=== PATIENT | female | born 1970 | race Caucasian/White ===

== ENCOUNTER 2023-01-13 14:53 | Emergency (ER) | payer OTHER ==
[~2023-01-13] VITALS: Ht 175.3 cm; Wt 122.5 kg
[~2023-01-13 14:53] MED LIST: ABAC300; Adipex-P37.5 M1 PO; Adipex-P37.5 MG; CALCAVITD PO; CHOL10002 PO; CLARITIN-D 121 EACH PO; CLIN300 PO; FLUC150A PO; IBUP200 PO; LO LOESTRIN FE1 EACH PO; METHYLPHENIDATE18 MG PO; METO50ER PO; Multi-Day Vita1 EACH; NAPR220; OMEP40CA12 PO; OXYACE5T PO; SULTRIDS PO; Super B Comple150 MG PO; VALA500 PO
[2023-01-13 15:07] VITALS: BP 122/81
[2023-01-13] MEDS ORDERED: Zithromax250 MG PO (17:02)
== END 2023-01-13 17:16 | disposition home or self-care (01) ==
LOC: ER 14:53
DX: J18.9 Pneumonia, unspecified organism (principal); F17.200 Nicotine dependence, unspecified, uncomplicated; Z88.0 Allergy status to penicillin; Z79.899 Other long term (current) drug therapy
CPT/HCPCS: 71046; 99283-25

== ENCOUNTER 2023-01-15 09:43 | Inpatient (IN) | payer OTHER ==
[~2023-01-15] VITALS: Ht 162.6 cm; Wt 127.8 kg
[2023-01-15] VITALS (8 sets, daily range): BP systolic 99–149; BP diastolic 61–94
[~2023-01-15 09:43] MED LIST changes: +Zithromax250 MG PO
[2023-01-15 10:21] LABS: Base Excess Venous -6.8 mmol/L; Bicarbonate Venous 19.3 mmol/L (24.0-30.0); pH Blood Venous 7.36 (7.34-7.37)
[2023-01-15 10:46] LABS: Albumin, Blood 1.7 g/dL (3.4-5.0); Albumin/Globulin Ratio 0.4 (0.8-1.8); Bilirubin, Total 3.1 mg/dL (0.1-1.0); Calcium, Blood 8.5 mg/dL (8.5-10.1); Creatinine, Blood 1.46 mg/dL (0.40-1.00); Globulin, Blood 4.8 g/dL (2.2-4.0); Potassium, Blood 3.2 mmol/L (3.5-5.5); Total Protein, Blood 6.5 g/dL (6.4-8.2)
[2023-01-15 10:48] LABS: Hematocrit 40.8 % (33.0-51.0); Hemoglobin 14.1 g/dL (11.5-16.0); Mean Corpuscular HGB 29.3 pg (26.0-34.0); Mean Corpuscular HGB Conc 34.6 g/dL (31.5-36.5); Mean Corpuscular Volume 85 fL (80-100); Mean Platelet Volume 12.8 fL (9.1-12.4); Platelet Count 72 K/mm3 (150-400); RDW Coefficient Variation 13.9 % (11.7-14.2); RDW Standard Deviation 43.3 fL (35.1-46.3); Red Blood Cell Count 4.81 M/mm3 (3.80-5.20); White Blood Cell Count 26.65 K/mm3 (4.00-11.30)
[2023-01-15 11:42] LABS: Influenza A, PCR NEGATIVE (NEGATIVE); Influenza B, PCR NEGATIVE (NEGATIVE); Resp Syncytial Virus, PCR NEGATIVE (NEGATIVE); SARS-Cov-2 (COVID-19) PCR, MMC NEGATIVE (NEGATIVE)
[2023-01-15 12:22] LABS: BAND PERCENT MAN 14 % (0-8); BASOPHILS PERCENT MAN 0 % (0-2); EOSINOPHILS PERCENT MAN 0 % (0-6); LYMPHOCYTES % ATYPICAL MANUAL 1 % (0-0); LYMPHOCYTES ABSOLUTE MAN 1.06 K/mm3 (0.84-5.20); LYMPHOCYTES PERCENT MAN 3 % (21-46); METAMYELOCYTE ABSOLUTE MAN 0.26 K/mm3 (0.00-0.00); METAMYELOCYTE PERCENT MAN 1 % (0-0); MONOCYTES ABSOLUTE MAN 0.53 K/mm3 (0.16-1.47); MONOCYTES PERCENT MAN 2 % (4-13); NEUTROPHILS ABSOLUTE MAN 24.78 K/mm3 (1.96-9.15); SEG NEUTROPHILS PERCENT MAN 79 % (41-73); TOTAL CELLS COUNTED 100
[2023-01-15] MEDS ORDERED: MODA200 PO (13:57)
[2023-01-15] MEDS ORDERED: PANT40 PO (13:59)
[2023-01-15] MEDS ORDERED: CENTRUM SILVER1 EAC2 PO (14:01)
[2023-01-15] MEDS ORDERED: DESV50 PO (14:03)
[2023-01-15] MEDS ORDERED: ALBU90OI INH (14:11)
[2023-01-15] MEDS ORDERED: ALBU90OI6 INH (14:12)
[2023-01-15 15:01] LABS: Adenovirus Not Detected (NOT DETECT); Bordetella pertussis Not Detected (NOT DETECT); Chlamydophila pneumoniae Not Detected (NOT DETECT); Coronavirus 229E Not Detected (NOT DETECT); Coronavirus HKU1 Not Detected (NOT DETECT); Coronavirus NL63 Not Detected (NOT DETECT); Coronavirus OC43 Not Detected (NOT DETECT); Human Metapneumovirus Not Detected (NOT DETECT); Human Rhinovirus/Enterovirus Not Detected (NOT DETECT); Influenza A/2009-H1 Not Detected (NOT DETECT); Influenza A/H1 Not Detected (NOT DETECT); Influenza A/H3 Not Detected (NOT DETECT); Influenza B Not Detected (NOT DETECT); Mycoplasma pneumoniae Not Detected (NOT DETECT); Parainfluenza Virus 1 Not Detected (NOT DETECT); Parainfluenza Virus 2 Not Detected (NOT DETECT); Parainfluenza Virus 3 Not Detected (NOT DETECT); Parainfluenza Virus 4 Not Detected (NOT DETECT); Respiratory Syncytial Virus Not Detected (NOT DETECT); SARS-Cov-2 (COVID-19), BioFire Not Detected (NOT DETECT)
--- NOTE | 2023-01-15 19:31 | NUR ---
SHIFT SUMMARY NEW ADMIT TO UNIT FROM ER FOR ACUTE HYPOXEMIA WITH PNEUMONIA. ARRIVED TO ROOM AT 1500 ON GURNEY. ON CPAP AT 10/70%. SLIDE TRANSFERRED TO BED. ALERT AND ORIENTED. SPO2 MID 90S, SBP 140S, HR 100S, TEMP NORMAL, RR 24-34. ADMISSION COMPLETED. DESATS IMMEDIATELY TO 70S-80S WHEN MASK REMOVED FOR SIPS OF WATER. REBOUNDS QUICKLY. TRIALED HIFLOW O2 AT 50L AND 100%, TOLERATED FOR A SHORT TIME WHILE PATIENT ATE DINNER. DESATS WITH EXERTION, BEDREST EXCEPT FOR BSC. CPAP REPLACED. PATIENT REPORTS SOME ANXIETY AND CLAUSTROPHOBIA WITH CPAP MASK. ATIVAN PRN ON EMAR. IV FLUIDS AND ABX RUNNING. SON VISITED AT BEDSIDE. REPORT GIVEN TO CASTINGS DRAFTER RN.
--- NOTE | 2023-01-15 21:08 | NUR ---
ASSUMPTION AND TRANSFER OF CARE ASSUMED CARE OF PT AT 1900. PT AXO, ON CPAP 10CM 70%. PT VISIBLY ANXIOUS WITH A RESPIRATORY RATE >45. ATIVAN IV ADMINISTERED, LITTLE EFFECT. CALLED RESIDENT, HIGHER DOSAGE OBTAINED. ADMINISTERED, PT STILL WITH RR >40 AND HAS QUICKLY INCREASED O2 DEMANDS TO 100% FIO2. SPO2 88-92 IF PATIENT ISN'T MOVING. SINUS TACH >115. ORDERS RECEIVED FOR ICU TRANSFER AND PRECEDEX GTT. PT TRANSFERRED @ 2114. IGNITION ASSESMENT COMPLETED AND EDUCATION COMPLETED.
[2023-01-16] VITALS (39 sets, daily range): BP systolic 70–140; BP diastolic 44–88
[2023-01-16 00:55] LABS: PO2 Arterial 65.3 mmHg (80-100)
[2023-01-16 00:56] LABS: pH Blood Arterial 7.25 (7.35-7.45)
--- NOTE | 2023-01-16 02:00 | NUR ---
PATIENT INTUBATED WITH RT NUNES AND DR ROBB. 2332- 5MG VERSED, 50MG PROPOFOL 2333- 30MG PROPOFOL 2334- INTUBATED WITH 8.0 ETT 24 @TEETH 2336- 2MG VERSED, 20MG PROPOFOL 2338- 25MG ROCURONIUM ETT TUBE CHANGED TO 22 @TEETH AFTER CXR
[2023-01-16 02:05] LABS: Source, Urine Foley catheter
[2023-01-16 02:08] LABS: Blood, Urine 3+ (Neg); Glucose Qualitative, Urine Neg (Neg); Ketones, Urine 1+ (Neg); Leukocyte Esterase, Urine 1+ (Neg); Nitrite, Urine Neg (Neg); Protein, Urine 3+ (Neg); Urobilinogen, Urine 1+ (Normal)
[2023-01-16 02:36] LABS: Appearance, Urine Hazy (Clear); Bilirubin, Urine 1+ (Neg); Color, Urine Amber (P-Yellow)
[2023-01-16 02:37] LABS: Amorphous Light (0-Heavy); Bacteria Mod /hpf; Red Blood Cells, Urine 0-2 /hpf (0-2); Squamous Epithelial Cells Mod /hpf (Few); White Blood Cells, Urine 25-50 /hpf (0-5)
[2023-01-16 02:52] LABS: Adenovirus Not Detected (NOT DETECT); Bordetella pertussis Not Detected (NOT DETECT); Chlamydophila pneumoniae Not Detected (NOT DETECT); Coronavirus 229E Not Detected (NOT DETECT); Coronavirus HKU1 Not Detected (NOT DETECT); Coronavirus NL63 Not Detected (NOT DETECT); Coronavirus OC43 Not Detected (NOT DETECT); Human Metapneumovirus Not Detected (NOT DETECT); Human Rhinovirus/Enterovirus Not Detected (NOT DETECT); Influenza A/2009-H1 Not Detected (NOT DETECT); Influenza A/H1 Not Detected (NOT DETECT); Influenza A/H3 Not Detected (NOT DETECT); Influenza B Not Detected (NOT DETECT); Mycoplasma pneumoniae Not Detected (NOT DETECT); Parainfluenza Virus 1 Not Detected (NOT DETECT); Parainfluenza Virus 2 Not Detected (NOT DETECT); Parainfluenza Virus 3 Not Detected (NOT DETECT); Parainfluenza Virus 4 Not Detected (NOT DETECT); Respiratory Syncytial Virus Not Detected (NOT DETECT); SARS-Cov-2 (COVID-19), BioFire Not Detected (NOT DETECT)
[2023-01-16 03:40] LABS: Hematocrit 36.7 % (33.0-51.0); Hemoglobin 11.8 g/dL (11.5-16.0); Mean Corpuscular HGB 28.9 pg (26.0-34.0); Mean Corpuscular HGB Conc 32.2 g/dL (31.5-36.5); RDW Coefficient Variation 14.6 % (11.7-14.2); Red Blood Cell Count 4.08 M/mm3 (3.80-5.20); White Blood Cell Count 23.97 K/mm3 (4.00-11.30)
[2023-01-16 03:44] LABS: Mean Corpuscular Volume 90 fL (80-100); Mean Platelet Volume 13.7 fL (9.1-12.4)
[2023-01-16 03:46] LABS: Platelet Count 40 K/mm3 (150-400)
[2023-01-16 03:58] LABS: Albumin, Blood 1.3 g/dL (3.4-5.0); Albumin/Globulin Ratio 0.3 (0.8-1.8); Bilirubin, Total 2.5 mg/dL (0.1-1.0); Bun/Creatinine Ratio 28.3 (12.0-20.0); Calcium, Blood 7.3 mg/dL (8.5-10.1); Creatinine, Blood 1.27 mg/dL (0.40-1.00); Globulin, Blood 3.9 g/dL (2.2-4.0); Magnesium, Blood 2.8 mg/dL (1.6-2.4); Potassium, Blood 4.5 mmol/L (3.5-5.5); Total Protein, Blood 5.2 g/dL (6.4-8.2)
[2023-01-16 04:11] LABS: BAND PERCENT MAN 21 % (0-8); BASOPHILS PERCENT MAN 0 % (0-2); EOSINOPHILS PERCENT MAN 0 % (0-6); LYMPHOCYTES ABSOLUTE MAN 0.71 K/mm3 (0.84-5.20); LYMPHOCYTES PERCENT MAN 3 % (21-46); METAMYELOCYTE ABSOLUTE MAN 0.23 K/mm3 (0.00-0.00); METAMYELOCYTE PERCENT MAN 1 % (0-0); MONOCYTES ABSOLUTE MAN 0.23 K/mm3 (0.16-1.47); MONOCYTES PERCENT MAN 1 % (4-13); MYELOCYTE ABSOLUTE MAN 0.47 K/mm3 (0.00-0.00); MYELOCYTE PERCENT MAN 2 % (0-0); NEUTROPHILS ABSOLUTE MAN 22.29 K/mm3 (1.96-9.15); SEG NEUTROPHILS PERCENT MAN 72 % (41-73); TOTAL CELLS COUNTED 100
--- NOTE | 2023-01-16 06:36 | NUR ---
PATIENT TRANSFERRED FROM PCU TO ICU OVERNIGHT FOR PRECEDEX WITH BIPAP. PATIENT RESPIRATORY STATUS CONTINUED TO DECLINE, INTUBATED AND PARALYZED. NIMBEX GTT INFUSING AND BIS MONITOR IN PLACE. TRAIN OF FOUR CURRENTLY 0/4, WEANING NIMBEX. 8.0 ETT, 22 @TEETH. AC/VC 26/300/18/100%. SINUS TACH. HYPOTENSIVE IMMEDIATELY INTUBATION BUT BP STABILIZED AFTER 1L BOLUS. OGT AND HOWARD IN PLACE. FAMILY AT BEDSIDE. UNABLE TO EDUCATE PATIENT ON IGNITION SOURCES.
--- NOTE | 2023-01-16 08:56 | NUR ---
ASSUMED CARE REPORT FROM TARIK SZYMANSKI AT 0700. PT INTUBATED, SEDATED, AND PARALYZED. VENT SETTINGS AC/VC 26/300/20/100% LUNGS COARSE c HIGH PITCHED WHEEZE. O2 SATS 90%. PLAN TO PRONE THIS SHIFT. NIMBEX INFUSING FOR VENT COMPLIANCE, TO4 4 BUT PT COMPLIANT c VENT. PROPOFOL FOR SEDATION. BIS MONITORING, 40'S. ST ON MONITOR, RATE 120-130'S. BP STABLE. OGT TO LIS, GREEN EMESIS OUT, ABD SOFT, OBESE, ROUND. BY X 4. HOWARD PATENT, DRAINING YELLOW URINE TO GRAVITY. FAMILY AT BEDSIDE. PLAN FOR PICC, PRONE AND POSSIBLE TRANSFER THIS SHIFT. FAMILY UPDATED ON CARE PLAN. WILL CONTINUE TO MONITOR.
--- NOTE | 2023-01-16 10:12 | NUR ---
PRONE POSITION PT PRONED AT 0930 s INCIDENCE. PRESSURE POINTS ADDRESSED, PILLOWS PLACED, GEL PAD UNDER HEAD, MEPILEX TO KNEES, HOWARD STAT LOCK REMOVED. O2 SATS IMPROVED, CURRENTLY 95%. BP DECREASED AFTER PRONING, LEVO GTT STARTED FOR MAP >65. TO4 CONTINUES TO BE 4/4 BUT PT COMPLIANT c VENT. CONTINUING TO WORK ON TRANSFER.
[2023-01-16 11:23] LABS: Base Excess Venous -11.1 mmol/L; Bicarbonate Venous 14.6 mmol/L (24.0-30.0)
--- NOTE | 2023-01-16 11:40 | NUR ---
TRANSFER TO [facility] PT REMAINS IN PRONE POSITION. TOLERATING WELL, O2 SATS 97%. LUNGS DIM THROUGHOUT. LEVO TITRATED FOR MAP>65. NIMBEX AND PROPOFOL CONTINUE. REPORT TO REACH. TRANSFERRED CARE. REPORT TO CHRISTINA SZYMANSKI AT [facility]. FAMILY NOTIFIED OF TRANSFER.
--- NOTE | 2023-01-16 12:03 | NUR ---
PT OUT TO HELICOPTER WITH REACH CREW. SATS 88-90% AND ETCO2 65 UPON LOADING INTO HELICOPTER. 2 AMPS BICARB PUSH TO BE ADMINISTERED BY REACH CREW DUE TO PH 6.98. LEVOPHED AT 15 MCG WITH MAP >65.
== END 2023-01-16 11:50 | disposition short-term general hospital (02) | DRG 871 ==
LOC: ER 09:43 → PCU 11:41 → ICUE 11:41 → PCU 13:22 → ICUE 21:22
PROVIDERS: Emergency Medicine; Internal Medicine Critical Care Medicine; ADMIT Internal Medicine
PROC: 5A1935Z Respiratory Ventilation, Less than 24 Consecutive Hours (ICD-10-PCS; principal; 2023-01-15)
PROC: 0BH17EZ Insertion of Endotracheal Airway into Trachea, Via Natural or Artificial Opening (ICD-10-PCS; 2023-01-15)
PROC: 5A09357 Assistance with Respiratory Ventilation, Less than 24 Consecutive Hours, Continuous Positive Airway Pressure (ICD-10-PCS; 2023-01-15)
PROC: 3E03329 Introduction of Other Anti-infective into Peripheral Vein, Percutaneous Approach (ICD-10-PCS; 2023-01-15)
PROC: 0DH67UZ Insertion of Feeding Device into Stomach, Via Natural or Artificial Opening (ICD-10-PCS; 2023-01-15)
PROC: 4A033R1 Measurement of Arterial Saturation, Peripheral, Percutaneous Approach (ICD-10-PCS; 2023-01-15)
PROC: 3E033XZ Introduction of Vasopressor into Peripheral Vein, Percutaneous Approach (ICD-10-PCS; 2023-01-15)
PROC: 5A0935A Assistance with Respiratory Ventilation, Less than 24 Consecutive Hours, High Flow/Velocity Cannula (ICD-10-PCS; 2023-01-15)
PROC: 02HV33Z Insertion of Infusion Device into Superior Vena Cava, Percutaneous Approach (ICD-10-PCS; 2023-01-15)
DX: A41.9 Sepsis, unspecified organism (principal); J18.9 Pneumonia, unspecified organism; J80 Acute respiratory distress syndrome; N17.9 Acute kidney failure, unspecified; E87.1 Hypo-osmolality and hyponatremia; E87.4 Mixed disorder of acid-base balance; E87.6 Hypokalemia; J45.909 Unspecified asthma, uncomplicated; R94.5 Abnormal results of liver function studies; R65.20 Severe sepsis without septic shock; G47.419 Narcolepsy without cataplexy; G83.9 Paralytic syndrome, unspecified; Z20.822 Contact with and (suspected) exposure to COVID-19; F17.210 Nicotine dependence, cigarettes, uncomplicated; D69.6 Thrombocytopenia, unspecified; R74.8 Abnormal levels of other serum enzymes; I10 Essential (primary) hypertension; G89.29 Other chronic pain; I95.9 Hypotension, unspecified; Z79.51 Long term (current) use of inhaled steroids; Z88.0 Allergy status to penicillin; Z79.899 Other long term (current) drug therapy; Z79.2 Long term (current) use of antibiotics; Z79.891 Long term (current) use of opiate analgesic; Z98.890 Other specified postprocedural states; Z98.51 Tubal ligation status; Z86.14 Personal history of Methicillin resistant Staphylococcus aureus infection
CPT/HCPCS: 0202U; 0241U; 31500; 36415; 36569; 36600; 71045; 80053; 81001; 82803; 82947; 83605; 83735; 84145; 85025; 87040; 87070; 87081; 87086; 87205; 93005; 93010; 94002; 94640; 94660; 94664; 94762; 96365; 96366; 96367; 96375; 99285-25; A9270; C1751; C9113; J0456; J0696; J1956; J2060; J2250; J2704; J7030; J7040; J7050; J7060

== ENCOUNTER 2023-02-27 10:04 | Emergency (ER) | payer OTHER ==
[~2023-02-27] VITALS: Ht 162.6 cm; Wt 117.9 kg
[~2023-02-27 10:04] MED LIST changes: +ALBU90OI INH; +ALBU90OI6 INH; +CENTRUM SILVER1 EAC2 PO; +DESV50 PO; +MODA200 PO; +PANT40 PO
[2023-02-27] MEDS ORDERED: OMEP20ER PO (10:51)
[2023-02-27] MEDS ORDERED: Cleocin HCl150 MG (10:52)
[2023-02-27] MEDS ORDERED: CLARITIN5 MG PO (10:52)
[2023-02-27 12:27] LABS: BASOPHILS ABSOLUTE AUTO 0.03 K/mm3 (0.00-0.23); BASOPHILS PERCENT AUTO 0 % (0-2); EOSINOPHILS ABSOLUTE AUTO 0.19 K/mm3 (0.00-0.68); EOSINOPHILS PERCENT AUTO 2 % (0-6); Hematocrit 34.1 % (33.0-51.0); Hemoglobin 10.8 g/dL (11.5-16.0); IMMATURE GRAN ABSOLUTE AUTO 0.05 K/mm3 (0.00-0.10); IMMATURE GRAN PERCENT AUTO 1 % (0-1); LYMPHOCYTES ABSOLUTE AUTO 1.91 K/mm3 (0.84-5.20); LYMPHOCYTES PERCENT AUTO 24 % (21-46); MONOCYTES ABSOLUTE AUTO 0.59 K/mm3 (0.16-1.47); MONOCYTES PERCENT AUTO 7 % (4-13); Mean Corpuscular HGB 29.2 pg (26.0-34.0); Mean Corpuscular HGB Conc 31.7 g/dL (31.5-36.5); Mean Corpuscular Volume 92 fL (80-100); Mean Platelet Volume 10.6 fL (9.1-12.4); NEUTROPHILS ABSOLUTE AUTO 5.15 K/mm3 (1.96-9.15); NEUTROPHILS PERCENT AUTO 65 % (41-73); Platelet Count 224 K/mm3 (150-400); RDW Coefficient Variation 14.3 % (11.7-14.2); RDW Standard Deviation 48.3 fL (35.1-46.3); White Blood Cell Count 7.92 K/mm3 (4.00-11.30)
[2023-02-27 12:38] LABS: Albumin, Blood 2.9 g/dL (3.4-5.0); Albumin/Globulin Ratio 0.7 (0.8-1.8); Bilirubin, Total 0.4 mg/dL (0.1-1.0); Bun/Creatinine Ratio 8.7 (12.0-20.0); Calcium, Blood 8.6 mg/dL (8.5-10.1); Creatinine, Blood 0.69 mg/dL (0.40-1.00); Globulin, Blood 3.9 g/dL (2.2-4.0); Total Protein, Blood 6.8 g/dL (6.4-8.2)
[2023-02-27 12:41] LABS: International Normalized Ratio 1.01; Prothrombin Time Results 10.6 Sec (9.7-11.5)
[2023-02-27] MEDS ORDERED: XARELTO15 MG PO (12:47)
[2023-02-27 12:58] VITALS: BP 169/97
== END 2023-02-27 12:57 | disposition home or self-care (01) ==
LOC: ER 10:04
PROVIDERS: Physician Assistant
DX: I82.431 Acute embolism and thrombosis of right popliteal vein (principal); I82.411 Acute embolism and thrombosis of right femoral vein; I82.441 Acute embolism and thrombosis of right tibial vein; I82.451 Acute embolism and thrombosis of right peroneal vein; Z88.0 Allergy status to penicillin; Z79.899 Other long term (current) drug therapy; F17.200 Nicotine dependence, unspecified, uncomplicated
CPT/HCPCS: 80053; 85025; 85610; 93971; 99284-25

== ENCOUNTER → 2023-04-17 | Outpatient (CLI) | payer OTHER ==
[~2023-04-17] MED LIST changes: +CLARITIN5 MG PO; +Cleocin HCl150 MG; +OMEP20ER PO; +XARELTO15 MG PO
[2023-04-19 15:08] LABS: Stool Occult Bld Immuno 1 Negative (NEGATIVE)
== END | disposition home or self-care (01) ==
LOC: LAB SHORT 08:43 → LAB 08:43
PROVIDERS: Physician Assistant
DX: Z12.11 Encounter for screening for malignant neoplasm of colon (principal)
CPT/HCPCS: G0328

== ENCOUNTER 2023-07-30 15:23 | Inpatient (IN) | payer OTHER ==
[~2023-07-30] VITALS: Ht 160 cm; Wt 126.4 kg
[~2023-07-30 15:23] MED LIST changes: -DESV50 PO; -METO50ER PO; -OMEP20ER PO
[2023-07-30 16:23] LABS: BASOPHILS ABSOLUTE AUTO 0.11 K/mm3 (0.00-0.23); BASOPHILS PERCENT AUTO 1 % (0-2); EOSINOPHILS ABSOLUTE AUTO 0.03 K/mm3 (0.00-0.68); EOSINOPHILS PERCENT AUTO 0 % (0-6); Hemoglobin 19.5 g/dL (11.5-16.0); IMMATURE GRAN ABSOLUTE AUTO 0.16 K/mm3 (0.00-0.10); IMMATURE GRAN PERCENT AUTO 1 % (0-1); LYMPHOCYTES ABSOLUTE AUTO 2.66 K/mm3 (0.84-5.20); LYMPHOCYTES PERCENT AUTO 12 % (21-46); MONOCYTES ABSOLUTE AUTO 1.21 K/mm3 (0.16-1.47); MONOCYTES PERCENT AUTO 6 % (4-13); Mean Corpuscular HGB 28.4 pg (26.0-34.0); Mean Corpuscular HGB Conc 32.8 g/dL (31.5-36.5); Mean Corpuscular Volume 87 fL (80-100); Mean Platelet Volume 11.4 fL (9.1-12.4); NEUTROPHILS ABSOLUTE AUTO 17.65 K/mm3 (1.96-9.15); NEUTROPHILS PERCENT AUTO 81 % (41-73); Platelet Count 321 K/mm3 (150-400); RDW Coefficient Variation 14.7 % (11.7-14.2); RDW Standard Deviation 43.8 fL (35.1-46.3); Red Blood Cell Count 6.86 M/mm3 (3.80-5.20); White Blood Cell Count 21.82 K/mm3 (4.00-11.30)
[2023-07-30 16:29] LABS: Hematocrit 59.4 % (33.0-51.0)
[2023-07-30 16:44] LABS: Albumin, Blood 2.5 g/dL (3.4-5.0); Albumin/Globulin Ratio 0.5 (0.8-1.8); Bilirubin, Total 0.6 mg/dL (0.1-1.0); Bun/Creatinine Ratio 23.1 (12.0-20.0); Calcium, Blood 8.9 mg/dL (8.5-10.1); Creatinine, Blood 1.17 mg/dL (0.40-1.00); Globulin, Blood 4.7 g/dL (2.2-4.0); Potassium, Blood 5.6 mmol/L (3.5-5.5); Total Protein, Blood 7.2 g/dL (6.4-8.2)
[2023-07-30] MEDS ORDERED: XARELTO20 M1 PO (18:29)
[2023-07-30] MEDS ORDERED: METO25 PO (18:30)
[2023-07-30] MEDS ORDERED: PANT40 PO (18:30)
[2023-07-30] MEDS ORDERED: DESV50 PO (18:30)
[2023-07-30 18:43] LABS: Adenovirus Not Detected (NOT DETECT); Bordetella pertussis Not Detected (NOT DETECT); Chlamydophila pneumoniae Not Detected (NOT DETECT); Coronavirus 229E Not Detected (NOT DETECT); Coronavirus HKU1 Not Detected (NOT DETECT); Coronavirus NL63 Not Detected (NOT DETECT); Coronavirus OC43 Not Detected (NOT DETECT); Human Metapneumovirus Not Detected (NOT DETECT); Human Rhinovirus/Enterovirus Not Detected (NOT DETECT); Influenza A/2009-H1 Not Detected (NOT DETECT); Influenza A/H1 Not Detected (NOT DETECT); Influenza A/H3 Not Detected (NOT DETECT); Influenza B Not Detected (NOT DETECT); Mycoplasma pneumoniae Not Detected (NOT DETECT); Parainfluenza Virus 1 Not Detected (NOT DETECT); Parainfluenza Virus 2 Not Detected (NOT DETECT); Parainfluenza Virus 3 Not Detected (NOT DETECT); Parainfluenza Virus 4 Not Detected (NOT DETECT); Respiratory Syncytial Virus Detected (NOT DETECT); SARS-Cov-2 (COVID-19), BioFire Not Detected (NOT DETECT)
[2023-07-30 19:33] LABS: PCO2 Venous 48.8 mmHg (38-42)
[2023-07-30 19:34] LABS: Base Excess Venous -7.9 mmol/L; Bicarbonate Venous 17.5 mmol/L (24.0-30.0)
[2023-07-30 19:36] LABS: pH Blood Venous 7.22 (7.34-7.37)
[2023-07-30 19:54] LABS: Bun/Creatinine Ratio 21.8 (12.0-20.0); Calcium, Blood 8.2 mg/dL (8.5-10.1); Creatinine, Blood 1.33 mg/dL (0.40-1.00); Potassium, Blood 5.6 mmol/L (3.5-5.5)
[2023-07-30 21:02] LABS: Anti-Xa UFH, PHA Monitoring <0.10 IU/mL; International Normalized Ratio 0.98; Prothrombin Time Results 10.3 Sec (9.7-11.5)
[2023-07-31] VITALS (32 sets, daily range): BP systolic 84–124; BP diastolic 48–94
--- NOTE | 2023-07-31 05:05 | NUR ---
ADDITIONAL INFORMATION. PATIENT HAD BEEN SHOWING OBJECTIVE SIGNS AND SYMPTOMS OF SHUNTING. I.E. POOR CAPILLARY REFILL, FATIGUE, DUSKY EXTREMES, TACHACARDIA, DEHYDRATED VESSELLS, COOL EXTREMITIES. AFTER DISCUSSION WITH FLOOR RN AND CALL TO BOTH RESIDENT AND HOSPITALIST. PATIENT AGREEABLE TO TRANSFER. ADDITIONALLY, PATIENT ENDORSED THAT SHE DID NOT WANT TO NOTIFY FAMILY OF SITUATION SHE WANTS TO LET THEM SLEEP. MYSELF AND FLOOR RN FURING TRANSFER VERBALIZED UNDERSTANDING AND CONFIRMED SITUATION. LASTLY MULTIPLE CALLS TO PROVIDERS, ABOUT DIFFICULTY SUSTAINING ACCURATE BLOOD PRESSURES, PRIMARY LIVESTOCK BRANDS INSPECTOR WAS ABLE TO GET CONSISTENT DOPPLER BLOOD PRESSURES, HOWEVER, WHEN THIS KINDERGARTEN ASSISTANT OBTAINED MANUAL EXTREMELY LOW TO LOW 80'S SYSTOLICALLY AUSCILATED WITH SEVERELY LOW DIASTOLIC 40-50. PATIENT CORE TEMP OBTAINED FEBRILE, DESPITE EXTREMELY COOL EXTREMES.
[2023-07-31 05:06] LABS: Base Excess Venous -8.8 mmol/L; Bicarbonate Venous 17.9 mmol/L (24.0-30.0); PCO2 Venous 33.7 mmHg (38-42); pH Blood Venous 7.32 (7.34-7.37)
--- NOTE | 2023-07-31 05:29 | NUR ---
ARRIVAL TO PCU AND TRANSFER TO ICU PT ARRIVED APPROX 2145. A/O X 4 AND FOLLOWS COMMANDS. PT PALE, DIAPHORETIC, AND COLD TO TOUCH. EXTREMITIES DUSKY WITH POOR CAP REFILL. PT STATES SHE FEELS WEAK, AND TIRED. DENIES CHEST PAIN OR SOB. ON RA WITH SPO2 GREATER THEN 90%. UNABLE TO GET ACCURATE MONITOR BP OR PAOLA. DOPPLER SBP RANGED FROM 120'S-100'S. UNABLE TO GET ORAL OR TEMPORAL TEMP. ST 120'S. CALL TO RESIDENT APPROX 2325. RESIDENT ON FLOOR APPROX 2350. RESIDENT NOTIFIED REGARDING BP WITH DOPPLER, HR IN 120'S, UNABLE TO GET TEMP, PAST VBG OF PH 7.22, INCREASING TROP, DECREASED LA AND PT COLD TO TOUCH. NO NEW ORDERS AT THAT TIME. HOSP CALLED UNIT APPROX 0015 AND RELAYED SAME INFORMATION. NO NEW ORDERS. HEPARIN STARTED AND ICU STEREO PLOTTER OPERATOR IN ROOM TO PLACE PG. RECTAL PROBE PLACED TO GET CORE TEMP. APPROX 0200 PT C/O PAIN AND CRAMPING IN BLE. CALL TO RESIDENT, RELAYED THAT INFORMATION AND UPDATED ON TEMP OF 100.2F, DOPPLER BP, DUSKY EXTREMITIES, AND POOR CAP REFILL. ORDER TO GIVE TYLENOL AND IF THAT DOES NOT WORK, GIVE GABAPENTIN WELL ADD A PHOS LEVEL. PT GIVEN TYLENOL AND DECLINED GABAPENTIN APPOX AN HOUR LATER. STEREO PLOTTER OPERATOR AND THIS RN IN ROOM APPROX 0445 TO TRY AND GET PAOLA BP. PAOLA BP RANGED FROM 70'S/30'S, AND 100'S/40. MONITOR BP 90'S/70'S. PT STILL VERY DIAPHORETIC, MORE PALE, AND NOT FEELING WELL. RESIDENT CALLED AND IN ROOM. ABOVE INFORMATION RELAYED TO RESIDENT. RESIDENT ORDERED STAT VBG, AND CALLED HOSP TO BEDSIDE. HOSP AT BEDSIDE AND EVALUATING PT. DECISION TO TRANSFER TO ICU. PT ASKED BY THIS RN IF SHE WOULD LIKE A CALL TO HER SON TO NOTIFY REGARDING HER TRANSFER. PT STATED "NO, HE PROBABLY JUST GOT TO SLEEP." SON AT BEDSIDE APPROX [phone]. BEDSIDE REPORT GIVEN TO CONSULTING PRACTICE DIRECTOR.
[2023-07-31 05:30] LABS: Hemoglobin 18.1 g/dL (11.5-16.0); Mean Corpuscular HGB 28.5 pg (26.0-34.0); Mean Corpuscular Volume 89 fL (80-100); Mean Platelet Volume 11.4 fL (9.1-12.4); Platelet Count 288 K/mm3 (150-400); RDW Coefficient Variation 14.7 % (11.7-14.2); RDW Standard Deviation 46.3 fL (35.1-46.3); Red Blood Cell Count 6.34 M/mm3 (3.80-5.20); White Blood Cell Count 20.18 K/mm3 (4.00-11.30)
--- NOTE | 2023-07-31 05:51 | NUR ---
ASSUMED CARE PT ARRIVED TO ICU FROM PCU AT 0511, BEDSIDE SHIFT REPORT RECEIVED FROM CRISTINO SZYMANSKI. PT A/O X4, ABLE TO ANSWER QUESTIONS APPROPRIATELY. PT APPEARS LETHARGIC/TIRED. EYES CLOSED BUT STILL ABLE TO CONVERSE. PT DENIES PAIN AT THIS TIME, COMPLAINED OF NAUSEA AND MEDICATED PT PER EMAR. PT DENIES CP AND SOB AT THIS TIME. REPEAT EKG PERFORMED, DR. MASON IN TO SEE PATIENT AROUND 0550, EKG READ. PT ON RA AT THIS TIME, O2 SATS > 95%. LUNG LOPEZ CLEAR T/O DIMINISHED AT BASES. CARDIAC MONITORING REFLECTS SINUS TACH, HR 110s AT THIS TIME. BP MEASUREMENTS RANGING. MOST RECENT BP 112/48 WITH MAP 64. RADIAL AND PEDAL PULSES PALPABLE. T/O PT'S BODY COOL TO TOUCH. PT COMPLAINING OF FEELING EXTREMELY HOT. CORE TEMP VIA RECTAL PROBE 99.4 AT THIS TIME. HEPARIN GTT INFUSING THROUGH PG TO SANJEEV. NS INFUSING AT 125 THROUGH PIV TO RIGHT HAND.
[2023-07-31 06:43] LABS: Calcium, Blood 8.6 mg/dL (8.5-10.1); Creatinine, Blood 1.15 mg/dL (0.40-1.00); Magnesium, Blood 2.4 mg/dL (1.6-2.4); Potassium, Blood 4.5 mmol/L (3.5-5.5)
[2023-07-31 06:46] LABS: Hematocrit 56.6 % (33.0-51.0)
--- NOTE | 2023-07-31 09:39 | NUR ---
ASSUMED CARE REPORT FROM DENIZ SZYMANSKI AT 0700. PT RESTING IN BED. A&O X 4. FOLLOWS COMMANDS. FLAT AFFECT. REPORTS WEAKNESS X 2 DAYS. GENERALIZED FATIGUE. DENIES CP, SOB, OR OTHER SYMPTOMS. LUNGS CLEAR, OCCASIONAL NON PRODUCTIVE COUGH. STATES OTHER FAMILY MEMBERS HAVE BEEN ILL. HX OF [facility] PNA c TRANSFER TO [facility], ECMO, AND PROLONGED HOSPITALIZATION IN 01/31. ST ON MONITOR, RATE 100'S. BP STABLE. DR MCCONNELL ROUNDED, CONTINUE HEPARIN GTT, POSS CARDIAC CATH WEDNESDAY, ECHO COMPLETE, IVF D/C'D. EXT COOL, CLAMMY, AND DUSKY. DELAYED CAP REFILL. POWERGLIDE TO RUE, DRESSING C/D/I. PIV TO RH. ANTIBIOTICS INFUSING. CALL LIGHT IN REACH. WILL CONTINUE PLAN OF CARE.
[2023-07-31 16:46] LABS: Source, Urine Straight Cath
[2023-07-31 16:54] LABS: Appearance, Urine Clear (Clear); Bilirubin, Urine Neg (Neg); Blood, Urine Neg (Neg); Color, Urine Yellow (P-Yellow); Glucose Qualitative, Urine Neg (Neg); Ketones, Urine Neg (Neg); Leukocyte Esterase, Urine Neg (Neg); Nitrite, Urine Neg (Neg); Protein, Urine Neg (Neg); Urobilinogen, Urine NORM (Normal)
--- NOTE | 2023-07-31 17:15 | NUR ---
SHIFT SUMMARY NO ACUTE CHANGES THIS SHIFT. PT REMAINED OFF PRESSORS. SR, RATE 100-110'S. CONTINUES TO REPORT GENERALIZED WEAKNESS AND FATIGUE. STANDBY ASSIST TO BSC. LUNGS DIM IN BASES. RA, O2 SATS >95%. EXT COOL AND DUSKY. ECHO COMPLETED. CONTINUED ANTIBIOTIC TX. HEPARIN GTT CONTINUED. TMAX 99.9. WILL CONTINUE PLAN OF CARE UNTIL REPORT TO ONCOMING NURSE.
--- NOTE | 2023-07-31 21:14 | NUR ---
ASSUMED CARE CARE WAS ASSUMED OF PT AT 1900, REPORT GIVEN BY HERMINIA SZYMANSKI. PT A/O X4, ABLE TO ANSWER QUESTIONS APPROPRIATELY. PT LETHARGIC AND COMPLAINS OF GENERALLY FEELING WEAK. PT DENIES PAIN. PT ON RA, O2 SATS > 95%. PT DENIES SOB. CARDIAC MONITORING REFLECTS NSR, HR 90s, SBP 90s-100s WITH MAP >65. PT DENIES CP. HEPARIN GTT INFUSING PER EMAR. PT EXTREMITIES COOL TO TOUCH, BLE DUSKY IN COLOR.
[2023-08-01] VITALS (25 sets, daily range): BP systolic 80–118; BP diastolic 51–89
[2023-08-01 04:24] LABS: BASOPHILS ABSOLUTE AUTO 0.04 K/mm3 (0.00-0.23); BASOPHILS PERCENT AUTO 0 % (0-2); EOSINOPHILS ABSOLUTE AUTO 0.04 K/mm3 (0.00-0.68); EOSINOPHILS PERCENT AUTO 0 % (0-6); Hematocrit 45.1 % (33.0-51.0); Hemoglobin 14.5 g/dL (11.5-16.0); IMMATURE GRAN ABSOLUTE AUTO 0.12 K/mm3 (0.00-0.10); IMMATURE GRAN PERCENT AUTO 1 % (0-1); LYMPHOCYTES ABSOLUTE AUTO 2.96 K/mm3 (0.84-5.20); LYMPHOCYTES PERCENT AUTO 14 % (21-46); MONOCYTES ABSOLUTE AUTO 1.37 K/mm3 (0.16-1.47); MONOCYTES PERCENT AUTO 7 % (4-13); Mean Corpuscular HGB 28.4 pg (26.0-34.0); Mean Corpuscular HGB Conc 32.2 g/dL (31.5-36.5); Mean Corpuscular Volume 88 fL (80-100); Mean Platelet Volume 11.2 fL (9.1-12.4); NEUTROPHILS ABSOLUTE AUTO 16.36 K/mm3 (1.96-9.15); NEUTROPHILS PERCENT AUTO 78 % (41-73); Platelet Count 279 K/mm3 (150-400); RDW Coefficient Variation 14.5 % (11.7-14.2); RDW Standard Deviation 46.8 fL (35.1-46.3); Red Blood Cell Count 5.11 M/mm3 (3.80-5.20); White Blood Cell Count 20.89 K/mm3 (4.00-11.30)
[2023-08-01 05:51] LABS: Alanine Aminotransfer (ALT/SGP 36 U/L (12-78); Albumin, Blood 2.3 g/dL (3.4-5.0); Albumin/Globulin Ratio 0.7 (0.8-1.8); Alk Phos 68 U/L (50-136); Anion Gap 7 mmol/L (6-16); Aspartate Aminotrans (AST/SGOT 77 U/L (12-37); Bilirubin, Total 0.3 mg/dL (0.1-1.0); Blood Urea Nitrogen 35 mg/dL (8-24); Bun/Creatinine Ratio 35.8 (12.0-20.0); CO2, Blood 22 mmol/L (21-32); Calcium, Blood 7.9 mg/dL (8.5-10.1); Chloride, Blood 105 mmol/L (98-108); Creatinine, Blood 0.98 mg/dL (0.40-1.00); Globulin, Blood 3.3 g/dL (2.2-4.0); Glomerular Filtration Rate 70 (60-); Glucose, Blood 124 mg/dL (70-99); Potassium, Blood 4.8 mmol/L (3.5-5.5); Sodium, Blood 134 mmol/L (136-145); Total Protein, Blood 5.6 g/dL (6.4-8.2); Vancomycin, Trough 22.9 ug/mL (5.0-10.0)
--- NOTE | 2023-08-01 06:07 | NUR ---
SHIFT SUMMARY PT REMAINS A/O X4, ABLE TO ANSWER QUESTIONS APPROPRIATELY AND PARTICIPATE IN CONVERSATION. PT CONTINUES TO COMPLAIN OF FEELING GENERALLY WEAK. PT ABLE TO AMBULATE TO BSC WITH 1 NURSE ASSIST. PT ON RA, O2 SATS > 95%. CARDIAC MONITORING REFLECTS NSR, HR 90s. SBP 90s-100s WITH MAP >65. PT UNABLE TO VOID WHEN ATTEMPTED, BLADDER SCANNED PT AND RECORDED VOLUME OF 365 mL. STRAIGHT CATH PT, 500 mL OF URINE OUT. HEPARIN GTT INFUSING TO PIV IN RIGHT HAND. NS TKO INFUSING THROUGH PG TO SANJEEV. PT DENIED CP AND SOB THIS SHIFT.
[2023-08-01 09:26] LABS: Source, Urine Clean Catch
[2023-08-01 09:34] LABS: Appearance, Urine Cloudy (Clear); Bilirubin, Urine Neg (Neg); Blood, Urine Neg (Neg); Color, Urine Yellow (P-Yellow); Glucose Qualitative, Urine Neg (Neg); Ketones, Urine 1+ (Neg); Leukocyte Esterase, Urine Neg (Neg); Nitrite, Urine Neg (Neg); Protein, Urine 1+ (Neg); Urobilinogen, Urine NORM (Normal)
[2023-08-01 09:43] LABS: Bacteria Mod /hpf; Red Blood Cells, Urine 0-2 /hpf (0-2); Squamous Epithelial Cells Few /hpf (Few); White Blood Cells, Urine 0-2 /hpf (0-5)
--- NOTE | 2023-08-01 16:27 | NUR ---
TRANSFER TO PCU/SHIFT SUMMARY NO ACUTE CHANGES THIS SHIFT. REMAINS IN SR, RATE 80-100'S, BP STABLE. LUNGS CLEAR, REMAINS ON RA. OCCASIONAL NON PRODUCTIVE COUGH. EXT CONTINUE TO BE DUSKY. STATES SHE IS FEELING "MILDLY" BETTER. RESTED MOST OF SHIFT. A&OX 4. FOLLOWS COMMANDS. ABLE TO MAKE NEEDS KNOWN. GENRALIZED WEAKNESS, STANDBY ASSIST FOR BSC. HEPARIN GTT CONTINUES. PLAN FOR ANGIOGRAM TOMORROW, DR MCCONNELL ROUNDED AND CONSENT OBTAINED. REPORT TO BASIM SZYMANSKI, TRANSFERRED TO PCU 15. ALL BELONGINGS SENT c PT.
--- NOTE | 2023-08-01 17:08 | NUR ---
NURSING PCU DAYSHIFT SUMMARY: Assumed care of pt at approx 1645. Arrived from ICU via w/c accompanied by RN, bo w/SBA to unit bed. Pt oriented to room and call system. Telemetry placed and verified, NSR, no c/o CP/pressure. Respiratory status stable, O2 sat upper 90's on RA, occ cough, denies dyspnea at rest, continuous O2 monitoring in place. C/O general weakness and requires minimal assist w/ADL's. Droplet isolation in place for RSV. Pt denies any current questions/needs, call light in reach, monitor until rpt is given to NOC RN.
--- NOTE | 2023-08-01 22:17 | NUR ---
ASSUMPTION OF CARE: PATIENT ALERT AND ORIENTED X 4. PATIENT HAS BEEN SOFT BLOOD PRESSURES, MAP <60 SPOKE WITH KACEY ARELALNO DRYWALL TAPER 500mL NS BOLUS AND IF MAP DOESNT SUSTAIN MAP >65 THAN CALL AGAIN. PATIENT SR, ASYMPTOMATIC, WAS 1 PERSON ASSIST TO BATHROOM, TOLERATED WELL, SOME MINOR REDNESS TO BOTTOM. RHONCHI NOTED. PATIENT NOW IN ISOLATION FOR RSV. EDUCATION IN GREAT LENGTH ABOUT PROCEDURE, AND CURRENT ILLNESSES. PATIENT RECEPTIVE PLEASANT ABLE TO MAKE NEEDS KNOWN. DENIES CHEST PAIN PRESSURE OR SOB AT REST. DENIED DIZZINESS OR LIGHTHEADEDNESS WITH STANDING. LIMBS WITH INCREASED COLOR THAN WHEN SHE WAS ADMITTED TO PCU.
[2023-08-02] VITALS (12 sets, daily range): BP systolic 83–96; BP diastolic 37–61
[2023-08-02 04:16] LABS: BASOPHILS ABSOLUTE AUTO 0.06 K/mm3 (0.00-0.23); BASOPHILS PERCENT AUTO 0 % (0-2); EOSINOPHILS ABSOLUTE AUTO 0.17 K/mm3 (0.00-0.68); EOSINOPHILS PERCENT AUTO 1 % (0-6); Hematocrit 41.3 % (33.0-51.0); Hemoglobin 13.1 g/dL (11.5-16.0); IMMATURE GRAN ABSOLUTE AUTO 0.17 K/mm3 (0.00-0.10); IMMATURE GRAN PERCENT AUTO 1 % (0-1); LYMPHOCYTES ABSOLUTE AUTO 3.88 K/mm3 (0.84-5.20); LYMPHOCYTES PERCENT AUTO 17 % (21-46); MONOCYTES ABSOLUTE AUTO 1.57 K/mm3 (0.16-1.47); MONOCYTES PERCENT AUTO 7 % (4-13); Mean Corpuscular HGB 28.4 pg (26.0-34.0); Mean Corpuscular HGB Conc 31.7 g/dL (31.5-36.5); Mean Corpuscular Volume 90 fL (80-100); Mean Platelet Volume 11.3 fL (9.1-12.4); NEUTROPHILS ABSOLUTE AUTO 16.95 K/mm3 (1.96-9.15); NEUTROPHILS PERCENT AUTO 74 % (41-73); Platelet Count 262 K/mm3 (150-400); RDW Coefficient Variation 14.7 % (11.7-14.2); RDW Standard Deviation 48.4 fL (35.1-46.3); Red Blood Cell Count 4.61 M/mm3 (3.80-5.20)
[2023-08-02 04:57] LABS: Alanine Aminotransfer (ALT/SGP 34 U/L (12-78); Albumin, Blood 2.1 g/dL (3.4-5.0); Albumin/Globulin Ratio 0.7 (0.8-1.8); Alk Phos 68 U/L (50-136); Anion Gap 9 mmol/L (6-16); Aspartate Aminotrans (AST/SGOT 61 U/L (12-37); Bilirubin, Total 0.3 mg/dL (0.1-1.0); Blood Urea Nitrogen 47 mg/dL (8-24); Bun/Creatinine Ratio 38.5 (12.0-20.0); CO2, Blood 19 mmol/L (21-32); Calcium, Blood 7.6 mg/dL (8.5-10.1); Chloride, Blood 105 mmol/L (98-108); Creatinine, Blood 1.22 mg/dL (0.40-1.00); Globulin, Blood 3.2 g/dL (2.2-4.0); Glomerular Filtration Rate 54 (60-); Glucose, Blood 91 mg/dL (70-99); Potassium, Blood 5.1 mmol/L (3.5-5.5); Sodium, Blood 133 mmol/L (136-145); Total Protein, Blood 5.3 g/dL (6.4-8.2); Vancomycin, Trough 23.1 ug/mL (5.0-10.0)
--- NOTE | 2023-08-02 07:28 | NUR ---
Recieved in room report from Jerardo SZYMANSKI. Patient is awake, alert and oriented and is able to communicate all her needs. She is independent with positioning and comfort in bed and is a SBA with any ambulation. She is on RA and sats >90%. She has 18ga IV to RW and is flushed and SL's. She also has a 20ga PowerGlide to SANJEEV and is infusing Heparin at 16 units/kg/hr. Plan is for rn lab this am and called and est. time 9-9:30. Patient remains NPO.
--- NOTE | 2023-08-02 11:30 | NUR ---
Patient has has friends in room and tolerating well. She remains with systolic 80-90's. She remains on RA and sats >90%. She tolerated am meds that were not held r/t BP and NPO status. She remains independent in bed and calls appropriately. Button Sewer Hand just came and took her for procedure. Dr Ag came and spoke with patient prior.
--- NOTE | 2023-08-02 12:16 | NUR ---
Patient arrived back from Product Development Ecologist, Right TR band siet WNL. No bruising or hematoma. There are 10cc in arm band. Patient denies any needs.
--- NOTE | 2023-08-02 15:30 | NUR ---
Patient has all air out of TR band and site is WNL with no bruising or hematoma. She has been up to bathroom and tolerated well. She remains hypotensive with systolics 70-90's and MAPS in the 60's. No other significant changes.
--- NOTE | 2023-08-02 19:11 | NUR ---
Patient rest with friends in room. TR band remains in place and will review with Jerardo SZYMANSKI and he will pull and place dressing. Her systolic remains 80-90's and asymptomic when up. She continues on RA and sats >90%. She remains independent in bed and calls appropriately before getting up or for her needs. Heparin dc'd post procedure
--- NOTE | 2023-08-02 21:46 | NUR ---
ASSUMPTION OF CARE: ONLY CHANGES FROM PREVIOUS SHIFT, ARE MORE STABLE BLOOD PRESSURE, PATIENT ANGIO CLEAR, DENIES CHEST PAIN PRESSURE OR SOB. INCREASED PROVFUSION TO ALL EXTREMES. PATIENT STILL ALRET AND ORIENTED X 4. NO CONCERNS FROM THIS RN.
[2023-08-03] VITALS (7 sets, daily range): BP systolic 80–116; BP diastolic 50–68
--- NOTE | 2023-08-03 06:31 | NUR ---
NO CHANGE FROM ASSUMPTION OF CARE
--- NOTE | 2023-08-03 11:46 | NUR ---
PT IS RESTING WELL IN BED, DENIES CP OR SOB. SHE IS A/O X4. BLOOD PRESSURES ARE SOFT, I DID HOLD THE COZAAR THIS AM AND DID UPDATE DR BURNETTE ABOUT THIS WE HAVE RESTARTED LASIX THIS AM, HE IS OK WITH THIS MED HOLD. ASIDE FROM BP BEING SOFT VSS, NADN. NO NASAL FLARRING OR RETRACTIONS NOTED.
--- NOTE | 2023-08-03 15:21 | NUR ---
MAP IS 65, DR BURDEN PLACED PARAMETERS TO GIVE WITH MAPS GREATER THAN 65
--- NOTE | 2023-08-03 15:35 | NUR ---
PT'S MAP WAS 62 UPON INITIAL ASSESSMENT THIS AM, COZAAR WAS HELD DUE TO THE MAP, UPON RECHECKING MAP LATER WAS 65 I DISCUSSED THIS WITH DR BURNETTE AT BEDSIDE TO HOLD THIS MEDICATION, LASIX WAS ADMINISTERED. UPON CHECKING BP THIS EVENING MAP ALSO NOTED TO BE 62, WITH REASSESSMENT A FEW MOMENTS LATER MAP WAS 65 AND METOPROLOL WAS GIVEN ALONG WITH MIDODRINE AND PREDNISONE
--- NOTE | 2023-08-03 16:19 | NUR ---
THERE HAVE BEEN NO ACUTE CHANGES SINCE LAST NOTE. WILL REASSESS BP WITH EVENING MIDODRINE DOSE. PT HAS HAD A BED BATH AT THIS TIME. SHE CONTINUES TO REST WELL IN BED, DENIES CP OR SOB. SHE REMAINS A/O X4. CALL LIGHT WITHIN REACH
--- NOTE | 2023-08-03 21:20 | NUR ---
PT IS ALERT AND ORIENTED X 4, COOPERATIVE WITH CARE AND ABLE TO MAKE NEEDS KNOWN. VINAY. SHE IS ON RA AND MAINTAINING 02 SATURATION ABOVE 95% AND SHE DENIES SOB. HER HR IS SR 80'S, SHE DENIES CHEST PAIN/PRESSURE/DIZZINESS. SHE SAID HER ARMS FEEL A LITTLE WEAK AND SORE AND SHE SAID IT'S BECAUSE SHE'S MOVING THEM AROUND MORE THAN SHE USUALLY DOES. PT SAID THAT OVERALL SHE FEELS MUCH BETTER NOW THAN SHE DID WHEN SHE WAS FIRST ADMITTED. R RADIAL SITE NO REDNESS/SWELLING/PAIN/0 HEMATOMA. PT'S PT ABLE TO WALK TO RESTROOM WITH SBA. SHE HAS HAD FAMILY/FRIENDS IN ROOM SINCE BEGINNING OF SHIFT. HER CALL LIGHT IS WITHIN REACH.
[2023-08-04 02:24] LABS: BASOPHILS ABSOLUTE AUTO 0.03 K/mm3 (0.00-0.23); BASOPHILS PERCENT AUTO 0 % (0-2); EOSINOPHILS ABSOLUTE AUTO 0.01 K/mm3 (0.00-0.68); EOSINOPHILS PERCENT AUTO 0 % (0-6); Hemoglobin 11.1 g/dL (11.5-16.0); IMMATURE GRAN ABSOLUTE AUTO 0.29 K/mm3 (0.00-0.10); IMMATURE GRAN PERCENT AUTO 2 % (0-1); LYMPHOCYTES ABSOLUTE AUTO 1.09 K/mm3 (0.84-5.20); LYMPHOCYTES PERCENT AUTO 7 % (21-46); MONOCYTES ABSOLUTE AUTO 0.25 K/mm3 (0.16-1.47); MONOCYTES PERCENT AUTO 2 % (4-13); Mean Corpuscular HGB 28.5 pg (26.0-34.0); Mean Corpuscular HGB Conc 31.7 g/dL (31.5-36.5); Mean Corpuscular Volume 90 fL (80-100); Mean Platelet Volume 11.4 fL (9.1-12.4); NEUTROPHILS ABSOLUTE AUTO 13.24 K/mm3 (1.96-9.15); NEUTROPHILS PERCENT AUTO 89 % (41-73); Platelet Count 233 K/mm3 (150-400); RDW Coefficient Variation 15.3 % (11.7-14.2); RDW Standard Deviation 49.3 fL (35.1-46.3); White Blood Cell Count 14.91 K/mm3 (4.00-11.30)
[2023-08-04 02:27] LABS: Albumin, Blood 2.3 g/dL (3.4-5.0); Anion Gap 8 mmol/L (6-16); Blood Urea Nitrogen 49 mg/dL (8-24); Bun/Creatinine Ratio 39.5 (12.0-20.0); CO2, Blood 20 mmol/L (21-32); Calcium, Blood 7.9 mg/dL (8.5-10.1); Chloride, Blood 109 mmol/L (98-108); Creatinine, Blood 1.24 mg/dL (0.40-1.00); Glomerular Filtration Rate 53 (60-); Glucose, Blood 134 mg/dL (70-99); Magnesium, Blood 2.7 mg/dL (1.6-2.4); Phosphorus, Blood 4.2 mg/dL (2.5-4.9); Potassium, Blood 5.4 mmol/L (3.5-5.5); Sodium, Blood 137 mmol/L (136-145); Vancomycin, Trough 18.1 ug/mL (5.0-10.0)
[2023-08-04 03:06] VITALS: BP 116/62
--- NOTE | 2023-08-04 05:38 | NUR ---
SHIFT SUMMARY NO ACUTE CHANGES SEE PREVIOUS NOTE. PT CONTINUES TO BE ON RA MAINTIANING 02 SATURATION ABOVE 92% AND HAS DENIED SOB ALL SHIFT. HR CONTINUES TO BR SR 70'S AND PT HAS DENIED CHEST PAIN/PRESSURE ALL SHIFT. PT HAS SLEPT THE MAJORITY OF THE SHIFT. PT CURRENTLY RESTING IN BED WITH CALL LIGHT WITHIN REACH.
[2023-08-04 08:26] VITALS: BP 109/66
[2023-08-04] MEDS ORDERED: ASPI81CH PO (09:13)
[2023-08-04] MEDS ORDERED: LOSA25 PO (09:14)
[2023-08-04] MEDS ORDERED: FURO20 PO (09:14)
[2023-08-04] MEDS ORDERED: ATOR40TA PO (09:14)
[2023-08-04] MEDS ORDERED: MIDO5 PO ×2 (09:15→09:27)
[2023-08-04] MEDS ORDERED: PRED20 PO (09:26)
[2023-08-04] MEDS ORDERED: PROBIOTIC1 EA13 PO (09:38)
--- NOTE | 2023-08-04 10:53 | NUR ---
The pt has no complaints nor needs voiced. She says ready to go home, just waiting on her ride who was going to be here "any minute" per the patient, one hour ago when discharge instructions and education was completed.
--- NOTE | 2023-08-04 12:36 | NUR ---
After the patient's friend arrived, she helped the pt to change into her clothes. PT was taken in wheelchair by SUMEET to private vehicle driven by the pt's friend for discharge.
[2023-08-05 08:57] LABS: ANTI-NUCLEAR AB ANA,IGG ELISA None Detected (None Detected)
== END 2023-08-04 11:54 | disposition home or self-care (01) | DRG 871 ==
LOC: ER 15:23 → PCU 20:51 → ICUE 20:51 → ER 21:15 → PCU 21:45 → ICUE 07-31 05:14 → PCU 08-01 16:32
PROVIDERS: Emergency Medicine; Family Medicine; Internal Medicine; Nurse Practitioner Acute Care; Physician Assistant; ADMIT Student in an Organized Health Care Education/Training Program
PROC: 3E03329 Introduction of Other Anti-infective into Peripheral Vein, Percutaneous Approach (ICD-10-PCS; principal; 2023-07-30)
PROC: 3E033XZ Introduction of Vasopressor into Peripheral Vein, Percutaneous Approach (ICD-10-PCS; 2023-07-31)
PROC: B2111ZZ Fluoroscopy of Multiple Coronary Arteries using Low Osmolar Contrast (ICD-10-PCS; 2023-08-02)
DX: A41.9 Sepsis, unspecified organism (principal); J12.1 Respiratory syncytial virus pneumonia; J96.01 Acute respiratory failure with hypoxia; J96.02 Acute respiratory failure with hypercapnia; E87.20 Acidosis, unspecified; I42.8 Other cardiomyopathies; I31.9 Disease of pericardium, unspecified; I50.20 Unspecified systolic (congestive) heart failure; N17.9 Acute kidney failure, unspecified; J44.0 Chronic obstructive pulmonary disease with (acute) lower respiratory infection; Z68.42 Body mass index [BMI] 45.0-49.9, adult; R65.20 Severe sepsis without septic shock; I11.0 Hypertensive heart disease with heart failure; G47.11 Idiopathic hypersomnia with long sleep time; E66.01 Morbid (severe) obesity due to excess calories; J45.20 Mild intermittent asthma, uncomplicated; K21.9 Gastro-esophageal reflux disease without esophagitis; F32.A Depression, unspecified; E87.5 Hyperkalemia; E88.810 Metabolic syndrome; Z86.19 Personal history of other infectious and parasitic diseases; Z88.0 Allergy status to penicillin; Z86.718 Personal history of other venous thrombosis and embolism; Z79.01 Long term (current) use of anticoagulants; Z86.14 Personal history of Methicillin resistant Staphylococcus aureus infection; Z87.891 Personal history of nicotine dependence; Z11.52 Encounter for screening for COVID-19
CPT/HCPCS: 0202U; 36415; 71260; 76770; 76937; 80048; 80053; 80069; 80202; 81001; 81003; 82550; 82570; 82803; 83605; 83735; 83880; 84100; 84145; 84300; 84443; 84484; 84540; 85025; 85027; 85520; 85610; 85651; 85730; 86038; 86140; 87040; 87449; 93005; 93010; 93306; 93454; 94760; 94762; 96361; 96374-59; 99152; 99285-25; A9270; C1769; C1887; C1894; J0692; J0696; J1644; J1885; J1940; J2250; J2405; J3010; J3370; J7030; J7040; J7050; J7120; J7512; Q9967

== ENCOUNTER → 2025-04-12 | Outpatient (CLI) | payer OTHER ==
[~2025-04-12] MED LIST changes: +ASPI81CH PO; +ATOR40TA PO; +DESV50 PO; +FURO20 PO; +LOSA25 PO; +METO25 PO; +MIDO5 PO; +PRED20 PO; +PROBIOTIC1 EA13 PO; +XARELTO20 M1 PO
== END ==
LOC: LAB 16:44 → LAB SHORT 16:44
PROVIDERS: Nurse Practitioner Family
DX: Z01.419 Encounter for gynecological examination (general) (routine) without abnormal findings (principal)
CPT/HCPCS: 87624; G0145